=== PATIENT | female | born 1990 | race Caucasian/White ===

== ENCOUNTER 2017-08-11 09:14 | Emergency (ER) | payer BC ==
[~2017-08-11] VITALS: Ht 162.6 cm; Wt 79.7 kg
[2017-08-11 09:16] VITALS: TEMP 36.7; Ht 162.6 cm; Wt 79.7 kg
[2017-08-11] MEDS ORDERED: LORAZEPAM 1 MG TAB SL STA (09:31)
[2017-08-11] MEDS ORDERED: OPTIRAY 320 IV PRN (09:45)
[2017-08-11] MEDS ORDERED: BCPILLS PO (09:50)
[2017-08-11 10:01] LABS: BASO % 0.8 %; BASO ABS # 0.06 K/uL (0-0.2); EOS ABS # 0.08 K/uL (0-0.5); HEMOGLOBIN 14.5 g/dL (12.0-16.0); IG# 0.01 K/uL (0.00-0.02); LYMPH % 23.8 %; LYMPH ABS # 1.85 K/uL (1.2-3.4); MEAN CELL VOLUME 90.9 fL (80-100); MEAN CORPUSCULAR HEMOGLOBIN 32.2 pg (25-34); MEAN CORPUSCULAR HGB CONC 35.4 g/dl (32-36); MEAN PLATELET VOLUME 9.5 fL (7.4-10.4); MONO % 4.8 %; MONO ABS # 0.37 K/uL (0.11-0.59); NEUT % 69.5 %; NEUT ABS # 5.39 K/uL (1.4-6.5); PLATELET COUNT 315 K/uL (130-400); RED CELL DISTRIBUTION WIDTH CV 12.6 % (11.5-14.5); RED CELL DISTRIBUTION WIDTH SD 41.6 fL (36.4-46.3); WHITE BLOOD COUNT 7.76 K/uL (4.8-10.8)
[2017-08-11 10:30] LABS: ALBUMIN 3.9 gm/dl (3.4-5.0); ALT/SGPT 36 U/L (12-78); AST/SGOT 21 U/L (15-37); BLOOD UREA NITROGEN 12 mg/dl (7-18); CALCIUM 9.4 mg/dl (8.5-10.1); CARBON DIOXIDE 25 mmol/L (21-32); CREATININE 0.87 mg/dl (0.60-1.20); GLUCOSE 106 mg/dl (70-99); LIPASE 188 U/L (73-393); POTASSIUM 3.8 mmol/L (3.5-5.1); SODIUM 139 mmol/L (136-145)
[2017-08-11 10:32] LABS: ALKALINE PHOSPHATASE 56 U/L (45-117); TOTAL PROTEIN 8.2 gm/dl (6.4-8.2)
[2017-08-11] MEDS ORDERED: MoRPHine SULFATE 4 MG/ML 1 ML CARP\\VIAL IV STA (11:16)
--- NOTE | 2017-08-11 12:09 | DIAGNOSTIC IMAGING REPORT ---
CT OF THE ABDOMEN AND PELVIS WITH CONTRAST CLINICAL HISTORY: Epigastric pain. COMPARISON STUDY: None. TECHNIQUE: Following IV administration of 93 mL of Optiray-320, axial images of the abdomen and pelvis were obtained from the lung bases to the proximal femurs. Images were reviewed in the axial, sagittal, and coronal planes. IV contrast was administered without complication. A dose lowering technique was utilized adhering to the principles of ALARA. CT DOSE: 366.99 mGy.cm FINDINGS: There is mild S-shaped scoliosis of the thoracolumbar spine. Scoliosis hardware is noted. Evaluation is mildly compromised by streak artifact from the hardware. The liver, spleen, adrenal glands, kidneys and pancreas are unremarkable. There is no biliary or pancreatic ductal dilatation. There is no hydronephrosis. There is mild elevation of the right hemidiaphragm. Caliber and wall thickness of small and large bowel are normal. The appendix is normal. There is no free fluid within the pelvis. No suspicious osseous lesions are present. Major vasculature of the abdomen and pelvis is patent. A 4 mm lingular nodule is likely benign. IMPRESSION: 1. No acute process within the abdomen or pelvis. Normal appendix. No bowel obstruction. 2. Exam mildly compromised by streak artifact from the thoracolumbar spine scoliosis hardware. Electronically signed by: Ge Steele M.D. 08/11/2017 12:08 PM Dictated Date/Time: 08/11/2017 12:03 PM
--- NOTE | 2017-08-11 12:19 | DIAGNOSTIC IMAGING REPORT ---
CHEST 1 VW FRONT-NOT PORTABLE CLINICAL HISTORY: Right upper back pain. COMPARISON STUDY: No previous studies for comparison. FINDINGS: There is mild S-shaped scoliosis of the thoracolumbar spine. Scoliosis hardware is noted. Lungs are clear. No pneumothorax or pleural effusion is noted. Cardiomediastinal silhouette is normal. Pulmonary vascularity is normal. IMPRESSION: No acute cardiopulmonary findings. Electronically signed by: Ge Steele M.D. 08/11/2017 12:18 PM Dictated Date/Time: 08/11/2017 12:17 PM
--- NOTE | 2017-08-11 12:30 | DIAGNOSTIC IMAGING REPORT ---
THORACIC SPINE 3 VIEWS ROUTINE CLINICAL HISTORY: Back pain. COMPARISON STUDY: No previous studies for comparison. FINDINGS: There is mild S-shaped scoliosis of the thoracolumbar spine. Thoracolumbar spine hardware is noted. Hardware appears intact. No acute thoracic spine fracture is identified on this exam. IMPRESSION: 1. Mild thoracolumbar spine scoliosis with scoliosis hardware in place. Hardware appears intact. 2. No thoracic spine fracture. Electronically signed by: Ge Steele M.D. 08/11/2017 12:28 PM Dictated Date/Time: 08/11/2017 12:27 PM
[2017-08-11 13:01] VITALS: BP 122/81; PULSE 60; O2SAT 98
--- NOTE | 2017-08-11 13:48 | EMERGENCY ROOM VISIT NOTE ---
History Report prepared by [place]: Chip Wynne Under the Supervision of: Dr. Selvin Amaro D.O. First contact with patient: 09:20 Chief Complaint: BACK PAIN Stated Complaint: MID/LOW BACK PAIN STOMACH PAIN,NAUSEA History of Present Illness The patient is a 26 year old female who presents to the Emergency Room with complaints of waxing and waning severe mid to lower back pain for the past 2-3 days which she describes as a burning and aching. 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 She states that the pain in her back is worse than usual, and she has been having swelling in her back and abdomen. She reports that she is also having some abdominal pain and nausea which is not better or worse with anything. The patient states that her last bowel movement was yesterday, and she states that she had the stomach flu a week ago. She notes that she still has her gall bladder and appendix, and she takes Klonopin for her muscle spasms. Her last menstrual period was a month ago. Pt denies headache, change in vision, fevers, chest pain, shortness of breath, vomiting, diarrhea, pain with urination, melena, weakness, numbness, cough, runny nose, vaginal bleeding , and vaginal discharge. Source of History: patient Onset: 2-3 days ago Position: back Symptom Intensity: severe Quality: ache, burning Timing: waxes/wanes Associated Symptoms: + nausea, + abdominal pain Review of Systems See HPI for pertinent positives & negatives. A total of 10 systems reviewed and were otherwise negative. Past Medical & Surgical Medical Problems: (1) Chronic back pain Surgical Problems: (1) H/O spinal fusion Social History Smoking Status: Never Smoker Marital Status: single Occupation Status: employed Current/Historical Medications Scheduled Control Pills ( Control Pills), 1 TAB PO DAILY Allergies Coded Allergies: No Known Allergies (Unverified , 08/11/17) Physical Exam Vital Signs Date Time Temp Pulse Resp B/P (MAP) Pulse Ox O2 Delivery O2 Flow Rate FiO2 08/11/17 13:01 60 18 122/81 98 08/11/17 12:15 61 18 124/86 98 Room Air 08/11/17 09:16 36.7 89 20 154/92 100 Room Air Physical Exam GENERAL: Sitting up in chair, alert, well appearing, well nourished, no distress , non-toxic EYE EXAM: normal conjunctiva. OROPHARYNX: no exudate, no erythema, lips, buccal mucosa, and tongue normal and mucous membranes are moist NECK: supple, no nuchal rigidity, no adenopathy, non-tender LUNGS: Clear to auscultation. Normal chest wall mechanics HEART: no murmurs, S1 normal and S2 normal ABDOMEN: Mild periumbilical abdominal discomfort. Abdomen soft, normo-active bowel sounds, no masses, no rebound or guarding. BACK: Old lumbar incision with mild tenderness in the thoracic paraspinal region with palpation. Back is symmetrical on inspection and there is no deformity SKIN: no rashes and no bruising UPPER EXTREMITIES: upper extremities are grossly normal. LOWER EXTREMITIES: Flexion, and extension at the knee, hip, ankle, and EHL are 5 /5 bilaterally. Able to ambulate without difficulty. No pitting edema. NEURO EXAM: Normal sensorium, cranial nerves II-XII grossly intact, normal speech, no gross weakness of arms. Medical Decision & Procedures ER Provider Diagnostic Interpretation: Radiology results as stated below per my review and the radiologist's interpretation: CT OF THE ABDOMEN AND PELVIS WITH CONTRAST CLINICAL HISTORY: Epigastric pain. COMPARISON STUDY: None. TECHNIQUE: Following IV administration of 93 mL of Optiray-320, axial images of the abdomen and pelvis were obtained from the lung bases to the proximal femurs. Images were reviewed in the axial, sagittal, and coronal planes. IV contrast was administered without complication. A dose lowering technique was utilized adhering to the principles of ALARA. CT DOSE: 366.99 mGy.cm FINDINGS: There is mild S-shaped scoliosis of the thoracolumbar spine. Scoliosis hardware is noted. Evaluation is mildly compromised by streak artifact from the hardware. The liver, spleen, adrenal glands, kidneys and pancreas are unremarkable. There is no biliary or pancreatic ductal dilatation. There is no hydronephrosis. There is mild elevation of the right hemidiaphragm. Caliber and wall thickness of small and large bowel are normal. The appendix is normal. There is no free fluid within the pelvis. No suspicious osseous lesions are present. Major vasculature of the abdomen and pelvis is patent. A 4 mm lingular nodule is likely benign. IMPRESSION: 1. No acute process within the abdomen or pelvis. Normal appendix. No bowel obstruction. 2. Exam mildly compromised by streak artifact from the thoracolumbar spine scoliosis hardware. Electronically signed by: Ge Steele M.D. 08/11/2017 12:08 PM Dictated Date/Time: 08/11/2017 12:03 PM THORACIC SPINE 3 VIEWS ROUTINE CLINICAL HISTORY: Back pain. COMPARISON STUDY: No previous studies for comparison. FINDINGS: There is mild S-shaped scoliosis of the thoracolumbar spine. Thoracolumbar spine hardware is noted. Hardware appears intact. No acute thoracic spine fracture is identified on this exam. IMPRESSION: 1. Mild thoracolumbar spine scoliosis with scoliosis hardware in place. Hardware appears intact. 2. No thoracic spine fracture. Electronically signed by: Ge Steele M.D. 08/11/2017 12:28 PM Dictated Date/Time: 08/11/2017 12:27 PM CHEST 1 VW FRONT-NOT PORTABLE CLINICAL HISTORY: Right upper back pain. COMPARISON STUDY: No previous studies for comparison. FINDINGS: There is mild S-shaped scoliosis of the thoracolumbar spine. Scoliosis hardware is noted. Lungs are clear. No pneumothorax or pleural effusion is noted. Cardiomediastinal silhouette is normal. Pulmonary vascularity is normal. IMPRESSION: No acute cardiopulmonary findings. Electronically signed by: Ge Steele M.D. 08/11/2017 12:18 PM Dictated Date/Time: 08/11/2017 12:17 PM Laboratory Results 08/11/17 09:45 Red Blood Count 4.51, Mean Corpuscular Volume 90.9, Mean Corpuscular Hemoglobin 32.2, Mean Corpuscular Hemoglobin Concent 35.4, Mean Platelet Volume 9.5, Neutrophils (%) (Auto) 69.5, Lymphocytes (%) (Auto) 23.8, Monocytes (%) (Auto) 4.8, Eosinophils (%) (Auto) 1.0, Basophils (%) (Auto) 0.8, Neutrophils # (Auto) 5.39, Lymphocytes # (Auto) 1.85, Monocytes # (Auto) 0.37, Eosinophils # (Auto) 0.08, Basophils # (Auto) 0.06 08/11/17 09:45 Test 08/11/17 09:35 08/11/17 09:45 Urine Color YELLOW Urine Appearance CLEAR (CLEAR) Urine pH 7.0 (4.5-7.5) Urine Specific [place] 1.010 (1.000-1.030) Urine Protein NEG (NEG) Urine Glucose (UA) NEG (NEG) Urine Ketones NEG (NEG) Urine Occult Blood NEG (NEG) Urine Nitrite NEG (NEG) Urine Bilirubin NEG (NEG) Urine Urobilinogen NEG (NEG) Urine Leukocyte Esterase NEG (NEG) Urine WBC (Auto) 0 /hpf (0-5) Urine RBC (Auto) 0-4 /hpf (0-4) Urine Hyaline Casts (Auto) 0 /lpf (0-5) Urine Epithelial Cells (Auto) 0-5 /lpf (0-5) Urine Bacteria (Auto) NEG (NEG) Urine Test NEG (NEG) White Blood Count 7.76 K/uL (4.8-10.8) Red Blood Count 4.51 M/uL (4.2-5.4) Hemoglobin 14.5 g/dL (12.0-16.0) Hematocrit 41.0 % (37-47) Mean Corpuscular Volume 90.9 fL (80-100) Mean Corpuscular Hemoglobin 32.2 pg (25-34) Mean Corpuscular Hemoglobin Concent 35.4 g/dl (32-36) Platelet Count 315 K/uL (130-400) Mean Platelet Volume 9.5 fL (7.4-10.4) Neutrophils (%) (Auto) 69.5 % Lymphocytes (%) (Auto) 23.8 % Monocytes (%) (Auto) 4.8 % Eosinophils (%) (Auto) 1.0 % Basophils (%) (Auto) 0.8 % Neutrophils # (Auto) 5.39 K/uL (1.4-6.5) Lymphocytes # (Auto) 1.85 K/uL (1.2-3.4) Monocytes # (Auto) 0.37 K/uL (0.11-0.59) Eosinophils # (Auto) 0.08 K/uL (0-0.5) Basophils # (Auto) 0.06 K/uL (0-0.2) RDW Standard Deviation 41.6 fL (36.4-46.3) RDW Coefficient of Variation 12.6 % (11.5-14.5) Immature Granulocyte % (Auto) 0.1 % Immature Granulocyte # (Auto) 0.01 K/uL (0.00-0.02) Anion Gap 7.0 mmol/L (3-11) Est Creatinine Clear Calc Drug Dose 101.0 ml/min Estimated GFR () 107.3 Estimated GFR (Non- 92.6 BUN/Creatinine Ratio 13.8 (10-20) Calcium Level 9.4 mg/dl (8.5-10.1) Total Bilirubin 0.3 mg/dl (0.2-1) Direct Bilirubin < 0.1 mg/dl (0-0.2) Aspartate Amino Transf (AST/SGOT) 21 U/L (15-37) Alanine Aminotransferase (ALT/SGPT) 36 U/L (12-78) Alkaline Phosphatase 56 U/L (45-117) Total Protein 8.2 gm/dl (6.4-8.2) Albumin 3.9 gm/dl (3.4-5.0) Lipase 188 U/L (73-393) Laboratory results per my review. Medications Administered Medications (Trade) Dose Ordered Sig/Annemarie Route Start Time Stop Time Status Last Admin Dose Admin Morphine Sulfate (MoRPHine SULFATE INJ) 4 mg NOW STAT IV 08/11/17 11:16 08/11/17 11:17 DC 08/11/17 11:20 4 MG ED Course ED COURSE: Vital signs were reviewed and showed situational hypertension The patients medical record was reviewed The above diagnostic studies were performed and reviewed. ED treatments and interventions as stated above. 0920: The patient was evaluated in room B7. A complete history and physical examination was performed. 1116: I reevaluated the patient, and she wanted some medication for abdominal pain. I ordered some Morphine Sulfate 4mg IV 1243: Upon reevaluation, the patient is doing well. I discussed my findings with the patient and she understands and agrees with the treatment plan. Based on the patients age, coexisting illnesses, exam and lab findings the decision to treat as an outpatient was made. The patient remained stable while under my care. The patient appeared well at the time of discharge. Medical Decision Differential diagnoses includes but is not limited to gastritis, peptic ulcer disease, GERD, gallbladder disease, pancreatitis, small bowel obstruction, acute coronary syndrome, pericarditis, ischemic bowel, irritable bowel disease, irritable bowel syndrome, appendicitis, diverticulitis, malignancy, hernia, urinary tract infection, torsion, /ectopic , perforation, trauma, infectious. Patient is a 26-year-old female who presents to ER for abdominal discomfort associated with right upper thoracic pain which is always present but slightly worsened usual. On exam she is neurologically intact. Cc on BMP, LFTs, bilirubin lipase is unremarkable. UA negative. negative. CT abdomen and pelvis is negative. X-ray of the thoracic spine shows no acute pathology. Patient was updated bedside. She was given IV fluids, Zofran, Ativan and morphine. She felt significant better. She is discharged follow-up with PCP for repeat abdominal check tomorrow. Discussed with Pt concerning signs and symptoms to watch out for. Pt was instructed to follow up with their PCP and discussed with the patient their option to return to the ED at anytime for persistent or worsening symptoms. The appropriate anticipatory guidance and out-patient management, including indications for return to the emergency department, were explained at length to the patient and understood. Medication Reconcilliation Current Medication List: was personally reviewed by me Blood Pressure Screening Patient's blood pressure: Elevated blood pressure Blood pressure disposition: Elevated BP felt to be situational Impression Primary Impression: Abdominal pain Scribe Attestation The scribe's documentation has been prepared under my direction and personally reviewed by me in its entirety. I confirm that the note above accurately reflects all work, treatment, procedures, and medical decision making performed by me. Departure Information Dispostion Home / Self-Care Forms HOME CARE DOCUMENTATION FORM, IMPORTANT VISIT INFORMATION Patient Instructions Abdominal Pain - [facility], Counts Include 234 B[facility] At [facility] Additional Instructions Please follow up with your primary care doctor with in the next 24 hours. Any worsening of your symptoms, please return to the ED immediately. This includes any fevers greater than 100.4, worsening pain, chest pain, shortness breath, persistent nausea, vomiting, unable to eat or drink, or any other concerning signs or symptoms from your standpoint. Please take Tylenol or Motrin as needed for pain. Problem Qualifiers Primary Impression: Abdominal pain Abdominal location: unspecified location Qualified Codes: R10.9 - Unspecified abdominal pain
== END 2017-08-11 13:10 | disposition home or self-care (01) ==
LOC: C.EDB 09:17
DX: R10.9 Unspecified abdominal pain (principal); Z98.1 Arthrodesis status